=== PATIENT | male | born 1995 | race Caucasian/White ===

== ENCOUNTER 2017-02-02 21:01 | Emergency (ER) | payer BC ==
[2017-02-02 21:29] VITALS: BP 115/74
--- NOTE | 2017-02-02 21:37 | UC ---
Respiratory Complaint HPI - HPI Summary HPI Summary: 21 year old male presents with shortness of breath and chest pain. - History of Current Complaint Chief Complaint: UCRespiratory Stated Complaint: COUGH/CONGESTION Time Seen by Provider: 02/02/17 21:03 Hx Obtained From: Patient Onset/Duration: Sudden Onset Severity Initially: Moderate Severity Currently: Moderate Pain Scale Used: 0-10 Numeric - 5 Character: Cough: Nonproductive Associated Signs And Symptoms: Positive: Dyspnea, Wheezing - Allergies/Home Medications Allergies/Adverse Reactions: Allergies Allergy/AdvReac Type Severity Reaction Status Date / Time seasonal allergy Allergy Eyes Uncoded 02/02/17 21:20 Itchy/Swollen/Red/Watery Home Medications: Home Medications [id number] [Night Time Multi-Symptom 15-6.25-325 mg] 1 cap PO PRN 02/02/17 [History] Dextromethorphan-Phenylephrine [Day Time Multi-Symptom Co 10-5-325 mg] 1 cap PO PRN 02/02/17 [History] PMH/Surg Hx/FS Hx/Imm Hx - Surgical History Surgical History: None - Social History Alcohol Use: None Substance Use Type: None Smoking Status (MU): Never Smoked Tobacco - Immunization History Vaccination Up to Date: Yes Review of Systems Constitutional: Negative Skin: Negative Eyes: Negative ENT: Negative Respiratory: Shortness Of Breath, Cough Cardiovascular: Negative Gastrointestinal: Negative Genitourinary: Negative Motor: Negative Neurovascular: Negative Musculoskeletal: Negative Neurological: Negative Psychological: Negative All Other Systems Reviewed And Are Negative: Yes Physical Exam Triage Information Reviewed: Yes Appearance: Well-Appearing Vital Signs: Initial Vital Signs Temp 36.8 C 02/02/17 21:21 Pulse 125 02/02/17 21:21 Resp 24 02/02/17 21:21 BP 115/74 02/02/17 21:21 Pulse Ox 95 02/02/17 21:21 Eye Exam: Normal ENT Exam: Normal Dental Exam: Normal Neck exam: Normal Neck: Positive: 1 Respiratory: Positive: Decreased breath sounds, Wheezing Cardiovascular Exam: Normal Abdominal Exam: Normal Musculoskeletal Exam: Normal Neurological Exam: Normal Psychological Exam: Normal Skin Exam: Normal UC Diagnostic Evaluation - Laboratory O2 Sat by Pulse Oximetry: 95 Respiratory Course/Dx - Differential Dx/Diagnosis Provider Diagnoses: shortness of breath. tachycardia Discharge - Discharge Plan Condition: Stable Disposition: HOME Patient Education Materials: Acute Cough (ED), Wheezing (ED) Referrals: Jay Leon [Medical Doctor] -
--- NOTE | 2017-02-02 22:02 | RAD ---
Indication: Chest pain. 2 views of the chest including dual energy PA views demonstrate no mediastinal shift. Heart is of normal size and configuration. Lung bowers appear clear. IMPRESSION: No active cardiopulmonary disease is noted.
== END 2017-02-02 22:35 | disposition home or self-care (01) ==
LOC: UCCORT 21:01
DX: R06.02 Shortness of breath (principal); R00.0 Tachycardia, unspecified; J30.2 Other seasonal allergic rhinitis
CPT/HCPCS: 71020; 93005; 99213; G0463